=== PATIENT | female | born 1965 | race Two or more races ===

== ENCOUNTER 2021-01-03 15:24 | Outpatient (CLI) | payer MEDICAID ==
[2021-01-03] MEDS ORDERED: OMNIPAQUE 350 MG/ML, 100ML BOTTLE ONE (15:56)
== END 2021-01-03 23:59 | disposition home or self-care (01) ==
LOC: CFH 15:24
PROVIDERS: ATTEND Obstetrics & Gynecology Female Pelvic Medicine and Reconstructive Surgery
DX: N85.2 Hypertrophy of uterus (principal); N85.8 Other specified noninflammatory disorders of uterus; R19.00 Intra-abdominal and pelvic swelling, mass and lump, unspecified site
CPT/HCPCS: 74177; Q9967